=== PATIENT | female | born 1985 | race Caucasian/White ===

== ENCOUNTER 2018-12-21 16:54 | Emergency (ER) | payer MEDICAID, SELFPAY ==
[2018-12-21 17:10] VITALS: BP 141/80; RESP 16; TEMP 36.1; O2SAT 100
--- NOTE | 2018-12-21 17:18 | DI.RAD_ITS ---
SYMPTOMS/DIAGNOSIS: RT PROXIMAL RADIUS TENDERNESS, RT WRIST PAIN, ? FX RIGHT FOREARM: No acute fracture is identified. There is some bowing of the mid radius and thickening of the cortex of the ulna. The findings could be secondary to old fractures. Melorheostosis is an additional consideration. There is negative ulnar variance. IMPRESSION: No acute abnormality. RIGHT WRIST: No fracture or dislocation is seen. There is mild negative ulnar variance. IMPRESSION: Negative right wrist.
[2018-12-21] MEDS: Ibuprofen 800 MG TAB PO (17:30)
--- NOTE | 2018-12-21 18:37 | DI.VRAD_ITS ---
EXAM: XR Right Wrist Complete, 3 or more Views EXAM DATE/TIME: 12/21/2018 5:20 PM CLINICAL HISTORY: 33 years old, female; Pain; Wrist; Right; Patient HX: R wrist pain; Additional info: R/O fracture TECHNIQUE: XR Right wrist 3 or more views. COMPARISON: No relevant prior studies available. FINDINGS: Bones/joints: Mild negative ulnar variance suggested. Osseous anatomic alignment is well preserved. No acutely displaced fracture or dislocation. Joint spaces are well preserved. Soft tissues: Normal. IMPRESSION: Mild degenerative ulnar variance suggested. No acute skeletal pathology otherwise. Dictated and Authenticated by: Kemar Dunaway MD. Ordering:JAI Valente MD
--- NOTE | 2018-12-21 18:40 | DI.VRAD_ITS ---
EXAM: XR Right Forearm, 2 Views EXAM DATE/TIME: 12/21/2018 5:20 PM CLINICAL HISTORY: 33 years old, female; Pain; Lower or forearm; Right; Patient HX: Right proximal radius tenderness TECHNIQUE: XR Right forearm 2 views. COMPARISON: No relevant prior studies available. FINDINGS: Bones/joints: Osseous anatomic alignment is well preserved. No acutely displaced fracture or dislocation. Joint spaces are well preserved. Slight undulation and thickening to the radial diaphyseal cortex. Soft tissues: Normal. IMPRESSION: 1. Negative for acute skeletal pathology. 2. Questionable mid radial diaphyseal findings as could be seen with very mild melorheostosis. Dictated and Authenticated by: Kemar Dunaway MD. Ordering:JAI Valente MD
--- NOTE | 2018-12-21 19:08 | ED.GENADUL_ITS ---
Discharge Plan Disposition Patient Disposition: HOME Condition: Good Discharge Details Chief Complaint: Orthopedic Clinical Impression: Sprain of wrist, right Reason For Visit: right wrist injury /fall Primary Care Provider: Trudi Colon ED Provider: Ambrosio Gonzalez Home Meds and New Rx's Prescriptions: No Action multivitamin [Daily Multiple] 1 EACH tablet 1 ea PO DAILY RF: 0 cholecalciferol (vitamin D3) [Vitamin D3] 2,000 UNIT capsule 2,000 unit PO DAILY RF: 0 levonorgestrel-ethinyl estrad [Jolessa] 1 EACH tablets,dose pack,3 month 1 tab-cap PO DAILY Qty: 1 RF: 3 Discharge Instructions Instructions: Wrist Sprain (ED) Additional Instructions: Please take Tylenol and Motrin as needed for pain. Please use the wrist splint as directed. If you notice any worsening of your symptoms, or any new symptoms such as vomiting, diarrhea, fever, chills, shortness of breath, chest pain, n umbness, weakness, or fainting , please return immediately to the emergency department for reevaluation. Please follow up with your primary care provider as soon as possible for reassessment and reevaluation. As always, it was a pleasure participating in your medical care today. Referrals: Trudi Colon [Primary Care Provider] - Discharge Data Discharge Date/Time-TO BE ENTERED AT DEPARTURE: 12/21/18 19:15 Medical Decision Making This is a pleasant 33-year-old female with a past medical history of mild developmental delay who presents today for evaluation of right wrist pain in her dominant hand after falling. Per history it sounds like she fell on an outstretched wrist. Physical exam demonstrates tenderness at the distal radius, no anatomical snuffbox tenderness. Minimal tenderness over the ulna. Patient subjective complaints do include slight radiation of pain up towards the midshaft radius and ulna. No pain at the elbow, it deformity of the elbow, or pain with movement of the elbow. X-ray results demonstrate no acute process for the wrist, or forearm. There is mild questionable evidence of mild melorheostosis but no other significant abnormality. Patient has been given NSAIDs and is feeling well. She has been using ice well. With no evidence of fracture, I do feel that a wrist splint is reasonable at this time. Recommend continue NSAID use, close follow-up. I did discuss with the patient's sister need for potential further orthopedic follow-up with the patient's wrist pain persists after 1-2 weeks with conservative management, as well as the potential need for reimaging. I have extensively reviewed the treatment plan and discharge instructions with the patient and their family. I have addressed all patient concerns at this time. The patient and family was made aware of what symptoms to monitor for that would warrant a return to the emergency department. Discussed the plan with the patient and family, they demonstrate verbal understanding and agreement with our assessment and plan at this time. FINDINGS: Bones/joints: Osseous anatomic alignment is well preserved. No acutely displaced fracture or dislocation. Joint spaces are well preserved. Slight undulation and thickening to the radial diaphyseal cortex. Soft tissues: Normal. IMPRESSION: 1. Negative for acute skeletal pathology. 2. Questionable mid radial diaphyseal findings as could be seen with very mild melorheostosis. Thank you for allowing us to participate in the care of your patient. Dictated and Authenticated by: Kemar Ziegler MD FINDINGS: Bones/joints: Mild negative ulnar variance suggested. Osseous anatomic alignment is well preserved. No acutely displaced fracture or dislocation. Joint spaces are well preserved. Soft tissues: Normal. IMPRESSION: Mild degenerative ulnar variance suggested. No acute skeletal pathology otherwise. Thank you for allowing us to participate in the care of your patient. Dictated and Authenticated by: Kemar Ziegler MD HPI General Date/Time Provider Initiated Documentation: 12/21/18 17:18 . HPI Narrative: This is a 33-year-old female with a past medical history of developmental delay who presents with her sister who is also her airline counter agent right wrist pain. The patient is right-hand dominant. Sister states that the patient slipped and fell on the stairs secondary to inclement weather. She did land on her right wrist. It is expected that it was an outstretched wrist. This occurred roughly 2 hours prior to arrival. Patient has taken Tylenol and this has somewhat improved the pain. She does complain of pain in the wrist itself with some radiation up the forearm. She denies any associated numbness, tingling, or weakness. Denies any pain in any other locations. She denies striking her head or having any loss of consciousness. She does take oral contraceptives but no other medications. She denies any other pain or any other modifying factors. She denies any recent surgeries, pertinent family history, or IV or illicit drug use. Related Data Home Medications Medication Instructions Recorded Confirmed cholecalciferol (vitamin D3) 2,000 unit PO DAILY 01/26/16 12/21/18 [Vitamin D] multivitamin [Daily Multiple 1 ea PO DAILY 01/26/16 12/21/18 Vitamin] levonorgestrel-ethinyl estrad 1 tab-cap PO DAILY #1 pack 05/08/17 12/21/18 [Jolessa 0.15/0.03] Allergies Allergy/AdvReac Type Severity Reaction Status Date / Time No Known Allergies Allergy Unverified 12/21/18 17:15 General Stated Complaint: Orthopedic AMANDA: 4 Review of Systems Review of Systems All systems reviewed & are unremarkable except as noted in HPI and below PFSH Surgical History Tonsillectomy Social History Smoking/Tobacco Use Status: Never Exam Narrative Exam Narrative: 1.Const: Well-nourished, Well-developed, appearing stated age 2.Eyes: PERRL, no conjunctival injection, and symmetrical lids. 3.ENT: Atraumatic external nose and ears. Moist MM. Neck: Symmetric, trachea midline, No thyromegaly. There is no evidence of raccoon eyes, madsen sign, CSF rhinorrhea, mastoid tenderness, cranial crepitus, hemotympanum, exophthalmos, or hyphema. 4.CVS: +S1/S2, No murmurs or gallops. Peripheral pulses 2+ and equal in all extremities. Brisk capillary refill in all extremities. 5.RESP: Unlabored respiratory effort. Clear to auscultation bilaterally. No wheezes rales or rhonchi 6.GI: Soft, Nontender/Nondistended, No hepatosplenomegaly. No guarding or rebound. 7.MSK: Normocephalic/Atraumatic, Extremities w/o deformity . No cyanosis or clubbing, Normal movement of all extremities. No evidence of midline C-spine tenderness. Symmetrically palpable radial and ulnar pulses. Capillary refill <2 seconds to all digits. Intact sensation to light touch of the radial, median and ulnar nerves demonstrated by testing in the dorsal web space of the thumb, the distal palmar aspect of the index finger, and the lateral surface of the fifth finger. 2 point discrimination intact to 5mm of discrimination in the affected digit. 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 Intact recurrent median nerve as demonstrated by ability to move thumb fully through opposition, abduction and flexion. No significant deformity of the wrist or distal radius or ulna. Forearm is soft, compartments are soft. Patient does demonstrate subjective tenderness over the distal component of the distal radius, no snuffbox tenderness. Minimal tenderness on palpation at the distal ulna as well. 8.Skin: Warm, Dry. No rashes or lesions. 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 Sensation grossly intact, no focal neurologic deficits. 10.Psych: (AAO) x3. Appropriate mood and affect Course Vital Signs Temperature 36.1 C L 12/21/18 17:10 Respiratory Rate 16 12/21/18 17:10 Blood Pressure 141/80 H 12/21/18 17:10 Pulse Oximetry 100 12/21/18 17:10 Temperature 36.1 C L 12/21/18 17:10 Respiratory Rate 16 12/21/18 17:10 Respiratory Effort 12/21/18 17:13 Blood Pressure 141/80 H 12/21/18 17:10 Blood Pressure Position Sitting 12/21/18 17:10 Pulse Oximetry 100 12/21/18 17:10 Oxygen Delivery Method Room Air 12/21/18 17:10 Oxygen Flow Rate 0 12/21/18 17:10 Pain Level 5 12/21/18 17:14
== END 2018-12-21 19:15 | disposition home or self-care (01) ==
PROVIDERS: Emergency Provider Student in an Organized Health Care Education/Training Program; PCP Physician Assistant Medical
DX: S63.501A Unspecified sprain of right wrist, initial encounter (principal); F89 Unspecified disorder of psychological development; W10.8XXA Fall (on) (from) other stairs and steps, initial encounter
CPT/HCPCS: 29125; 99284; 73090; 73110; 99282; L3908

== ENCOUNTER 2023-05-02 16:15 | Outpatient (REF) | payer MEDICAID, SELFPAY ==
--- NOTE | 2023-05-02 15:40 | PAPFT_PTH ---
PATIENT: Brielle Tripp LOC: [facility]#:[id number] AGE/SX: 37/F ROOM: RE05/02/[address]: Cris Chappell MD : 1985 BED: DIS: 05/02/2023 SPEC #: [id number] RECD: 05/02/23 17:27 STATUS: MICHAEL REJoe #: [id number] CARA: 05/02/23 15:[address]: Cris Chappell DEPT: [facility] Cytology RECD BY: Saima Grande ENTERED: 05/02/23 17:28 SP TYPE: PAPFT OTHR DR: Trudi Colon Tissues: 1 - CX/ENDOCX FOR PAP SMEARS Procedures: PAP THIN PREP/UVM Screening HPV DNA PROBE Comments: [id number]
== END 2023-05-02 16:16 | disposition home or self-care (01) ==
LOC: LBN 16:15
PROVIDERS: PCP Physician Assistant Medical; Visit Provider Obstetrics & Gynecology
DX: Z12.4 Encounter for screening for malignant neoplasm of cervix (principal); Z11.51 Encounter for screening for human papillomavirus (HPV)
CPT/HCPCS: 88142; 87624

== ENCOUNTER 2023-09-02 02:40 | Outpatient (CLI) | payer MEDICAID, SELFPAY ==
[2023-09-02 13:20] LABS: Hemoglobin A1C 5.3 % (<5.7)
[2023-09-02 13:23] LABS: ALT 27 U/L (14-59); AST 17 U/L (15-37); Albumin 3.3 g/dL (3.4-5.0); Alkaline Phosphatase 44 U/L (46-116); Anion Gap 6.9 mmol/L (3-11); BUN 12 mg/dL (7-18); Bilirubin, Total 0.3 mg/dL (0.2-1.0); CO2 26.1 mmol/L (21.0-32.0); CREATININE 0.9 mg/dL (0.55-1.02); Calcium 9.2 mg/dL (8.5-10.1); Calculated LDL 124 mg/dL (<100); Chloride 106 mmol/L (98-107); Cholesterol 198 mg/dL (<200); Estimated GFR 84.97 (mL/min/1.73m2); Glucose 97 mg/dL (74-106); HDL Cholesterol 56 mg/dL (40-60); Potassium 4.2 mmol/L (3.5-5.1); Sodium 139 mmol/L (136-145); TSH 1.15 uIU/mL (0.36-3.74); Total Protein 7.2 g/dL (6.4-8.2); Triglyceride 93 mg/dL (<150)
== END 2023-09-02 02:41 | disposition home or self-care (01) ==
LOC: LBO 02:40
PROVIDERS: PCP Physician Assistant Medical; Visit Provider Physician Assistant Medical
DX: R73.03 Prediabetes (principal); E66.8 Other obesity; Z13.220 Encounter for screening for lipoid disorders; Z00.00 Encounter for general adult medical examination without abnormal findings; Z13.29 Encounter for screening for other suspected endocrine disorder
CPT/HCPCS: 36415; 80053; 80061; 83036; 84443

== ENCOUNTER 2024-09-24 15:08 | Outpatient (CLI) | payer MEDICAID, SELFPAY ==
[2024-09-24 12:10] LABS: Vitamin B12 404 pg/mL (193-986)
== END 2024-09-24 15:09 | disposition home or self-care (01) ==
PROVIDERS: PCP Physician Assistant Medical; Visit Provider Physician Assistant Medical
DX: E53.8 Deficiency of other specified B group vitamins (principal)
CPT/HCPCS: 36415; 82607